=== PATIENT | male | born 2000 | race Caucasian/White ===

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

== ENCOUNTER 2021-10-23 18:34 | Emergency (ER) | payer OTHER ==
[~2021-10-23] VITALS: Ht 162.6 cm; Wt 70.3 kg
[~2021-10-23 18:34] MED LIST: AMOX-358 PO; NAPR-915 PO; TRAM-42 PO
[2021-10-23 18:43] VITALS: BP 147/92
[2021-10-23] MEDS ORDERED: TRIM/SULFAMETH 160/800 (SEPTRA DS) TAB PO ONE (19:15)
[2021-10-23] MEDS ORDERED: SULF1TAB38 PO (19:16)
--- NOTE | 2021-10-23 19:17 | ED General ---
General Chief Complaint: - Reproductive Stated Complaint: POSSIBLE HERNIA Nursing Triage Note: PT AMB TO ED BY POV WITH C/O POSSIBLE HERNIA. PT REPORTS HE THOUGHT HE PULLED A MUSCLE IN HIS GROIN AND NOTICED A LUMP LAST NIGHT. Source of Information: Patient Exam Limitations: No Limitations History of Present Illness Date Seen by Provider: Oct 23, 2021 Time Seen by Provider: 19:02 Initial Comments 21-year-old male who is otherwise healthy presents for right groin swelling, redness. States symptoms started as a "ingrown hair." Onset was 2 days ago. He said increased redness and swelling in the area and today started has significant pain. No fevers chills nausea vomiting. He is having similar symptoms in the past. No difficulty urinating. No changes in his bowels. Allergies and Home Medications Allergies Coded Allergies: No Known Drug Allergies (Unverified , 12/10/17) Patient Home Medication List Home Medication List Reviewed: Yes Amoxicillin/Potassium Clav (Augmentin 875-125 Tablet) 1 Each Tablet, 1 EACH PO BID Prescribed by: PALBITO NESBITT on 12/10/17309 Naproxen (Naproxen) 500 Mg Tablet, 500 MG PO BID Prescribed by: PABLITO NESBITT on 12/10/17309 Tramadol HCl (Ultram) 50 Mg Tablet, 10 MG PO Q4H Prescribed by: PABLITO NESBITT on 12/10/17309 Review of Systems Review of Systems Constitutional: no symptoms reported EENTM: see HPI Respiratory: no symptoms reported Cardiovascular: no symptoms reported Gastrointestinal: no symptoms reported Genitourinary: no symptoms reported Musculoskeletal: no symptoms reported Skin: change in color, rash Psychiatric/Neurological: No Symptoms Reported Hematologic/Lymphatic: No Symptoms Reported Immunological/Allergic: no symptoms reported Past Hnuairu-Elajud-Pjlywp Hx Patient Social History Tobacco Use?: Yes Smokeless Tobacco Frequency: Current Everyday User Use of E-Cig and/or Vaping dev: No Substance use?: No Alcohol Use?: Yes Alcohol type: Beer, Hard Liquor Alcohol Frequency: Couple times a week Pt feels they are or have been: No Immunizations Up To Date PED Vaccines UTD: Yes Influenza Vaccine Up-to-Date: No; Not Current First/Initial COVID19 Vaccinat: YES Second COVID19 Vaccination Ronan: YES 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 Seasonal Allergies Seasonal Allergies: No Past Medical History Surgery/Hospitalization HX: DENIES Surgeries: No Respiratory: No Cardiac: No Neurological: Yes Concussion Genitourinary: No Gastrointestinal: No Musculoskeletal: No Endocrine: No HEENT: No Cancer: No Psychosocial: No Integumentary: No Blood Disorders: No Family Medical History Reviewed Nursing Family Hx No Pertinent Family Hx Physical Exam Vital Signs Vital Signs - First Documented 10/23/21 18:43 Temp 37.6 Pulse 93 Resp 18 B/P (MAP) 147/92 (110) Pulse Ox 99 O2 Delivery Room Air Capillary Refill : Less Than 3 Seconds Height, Weight, BMI Height: 5'4.00" Weight: 150lbs. oz. 68.802187kp; 26.00 BMI Method:Stated General Appearance: No Apparent Distress, WD/WN HEENT: Normal ENT Inspection, Pharynx Normal Neck: Normal Inspection, Non Tender, Supple Respiratory: Chest Non Tender, Lungs Clear, Normal Breath Sounds, No Accessory Muscle Use, No Respiratory Distress Cardiovascular: Regular Rate, Rhythm, No Edema, No Gallop, No JVD, No Murmur, Normal Peripheral Pulses Gastrointestinal: Normal Bowel Sounds, No Organomegaly, No Pulsatile Mass, Non Tender, Soft Genital/Rectal: Other (Swelling redness and induration in the right groin region. There is a small punctate area that is open on the right scrotal region which is where the patient states his symptoms started. There is no fluctuance. Significant induration.) Extremity: Normal Capillary Refill, Normal Inspection Neurologic/Psychiatric: Alert, Oriented x3, No Motor/Sensory Deficits Progress/Results/Core Measures Suspected Sepsis SIRS Temperature: Pulse: 93 Respiratory Rate: 18 Blood Pressure 147 /92 Mean: 110 Results/Orders My Orders Orders - BESS MORENO DO Sulfamethoxazole/Trimet Ds Tab (Bactrim (10/23/21 19:15) Vital Signs/I&O 10/23/21 18:43 Temp 37.6 Pulse 93 Resp 18 B/P (MAP) 147/92 (110) Pulse Ox 99 O2 Delivery Room Air Capillary Refill : Less Than 3 Seconds Blood Pressure Mean: 110 Departure Communication (Admissions) Limited bedside ultrasound shows no evidence of hernia. No drainable abscess, significant cobblestoning consistent with cellulitis. Discharged home with antibiotics and close follow-up. Impression Primary Impression: Cellulitis Qualified Codes: L03.818 - Cellulitis of other sites Disposition: HOME, SELF-CARE Condition: Stable Departure-Patient Inst. Referrals: [facility] (PCP/Family) Primary Care Physician Patient Instructions: Cellulitis (Skin Infection), Adult ED Add. Discharge Instructions: Take the antibiotics as prescribed until they are gone. Use Motrin and Tylenol as needed for pains. Return to the emergency department in 24 to 48 hours of your symptoms do not improve. Return sooner if you start having difficulty with bowel movements. Follow-up with your primary doctor in 48 to 72 hours. All discharge instructions reviewed with patient and/or family. Voiced understanding. BESS MORENO DO Oct 23, 2021 19:17
== END 2021-10-23 19:21 | disposition home or self-care (01) ==
LOC: EDUNIT# 18:34 → ER 18:35
DX: L03.314 Cellulitis of groin (principal); F17.200 Nicotine dependence, unspecified, uncomplicated
CPT/HCPCS: 99283